=== PATIENT | female | born 1990 | race African-American/Black ===

== ENCOUNTER 2018-01-07 02:32 | Emergency (ER) | payer BC ==
[~2018-01-07] VITALS: Ht 167.6 cm; Wt 82.0 kg
[2018-01-07] MEDS ORDERED: ONDANSETRON HCL 4MG/2ML VIAL IV STA (02:59)
[2018-01-07] MEDS ORDERED: KETOROLAC 30MG/ML VIAL IV STA (02:59)
[2018-01-07] MEDS ORDERED: SODIUM CHLORIDE 0.9% 1,000 ML IV ONE (02:59)
[2018-01-07] MEDS ORDERED: MAGNESIUM/ALUMINUM HYDROXIDE/SIMETHICONE 30ML UDC PO ONE (03:00)
[2018-01-07] MEDS ORDERED: ASPIRIN 81MG TABLET PO ONE (03:00)
[2018-01-07 03:54] LABS: BASOPHILS % 0.7 % (0.0-2.0); EOSINOPHILS % 0.5 % (0.0-5.0); HEMATOCRIT. 35.5 % (36.0-48.0); HEMOGLOBIN. 11.6 g/dL (12.0-16.0); LYMPHOCYTES % 23.7 % (20.0-50.0); MEAN CORPUSCULAR HEMOGLOBIN 24.1 pg (28.0-32.0); MEAN CORPUSCULAR VOLUME 73.8 fL (81.0-99.0); MEAN PLATELET VOLUME 7.8 fl (7.4-10.4); MONOCYTES % 5.4 % (2.0-8.0); NEUTROPHILS % 69.7 % (40.0-76.0); PLATELET 313 x1000/uL (130-400); RED BLOOD CELL COUNT 4.81 mill/uL (4.2-5.4); RED CELL DISTRIBUTION WIDTH 15.2 % (11.6-14.6)
[2018-01-07 04:03] LABS: CHLORIDE 108 mEq/L (98-107); ETHANOL BLOOD < 10 mg/dL
[2018-01-07 04:06] LABS: D-DIMER 0.91 mg/L FEU (<0.50); HCG SCREEN NEGATIVE; INR 1.1; PROTHROMBIN TIME 11.6 sec (9.4-11.6)
[2018-01-07] MEDS ORDERED: POTASSIUM BICARB/CIT ACID 25 MEQ TABLET.EFF PO NR (04:30)
[2018-01-07 04:59] VITALS: BP 157/99
== END 2018-01-07 05:10 | disposition home or self-care (01) ==
LOC: ER 02:32
DX: R07.89 Other chest pain (principal); R00.2 Palpitations; E87.6 Hypokalemia; I10 Essential (primary) hypertension; I47.1 Supraventricular tachycardia
CPT/HCPCS: 36415; 71045; 80053; 83690; 83735; 83880; 84484; 84703; 85025; 85379; 85610; 93005; 96360; 96361; 99285; G0482; J7030; Z7610

== ENCOUNTER 2024-12-22 10:27 | Emergency (ER) | payer SELFPAY ==
[~2024-12-22] VITALS: Ht 160 cm; Wt 100.0 kg
[2024-12-22 10:31] VITALS: BP 153/88; PULSE 87; RESP 16; TEMP 36.6; O2SAT 100
[2024-12-22] MEDS ORDERED: PRED5DRO22 LEFTEYE (11:06)
[2024-12-22] MEDS ORDERED: CYCL15DR11 LEFTEYE (11:06)
[2024-12-22] MEDS: FLUORESCEIN SODIUM 1MG/STRIP LEFTEYE ONE (11:12)
[2024-12-22] MEDS: TETRACAINE 0.5% OPHTH DROPS 4ML LEFTEYE ONE (11:12)
== END 2024-12-22 11:13 | disposition home or self-care (01) ==
LOC: ER 10:27
DX: H20.9 Unspecified iridocyclitis (principal); I10 Essential (primary) hypertension; D89.9 Disorder involving the immune mechanism, unspecified; Z79.899 Other long term (current) drug therapy
CPT/HCPCS: 99283